=== PATIENT | male | born 1990 | race Caucasian/White ===

== ENCOUNTER 2020-12-06 10:45 | Outpatient (CLI) | payer BC | END 2020-12-06 10:46 | disposition home or self-care (01) | LOC: CTENTCT 10:45 | PROVIDERS: ATTEND Student in an Organized Health Care Education/Training Program | DX: J32.9 Chronic sinusitis, unspecified (principal); J33.9 Nasal polyp, unspecified | CPT/HCPCS: 70486 ==

== ENCOUNTER 2021-01-06 15:02 | Outpatient (CLI) | payer BC ==
[2021-01-07 16:59] LABS: SARS-CoV-2 PCR by NAA Not Detected (NotDetected)
== END 2021-01-06 15:03 | disposition home or self-care (01) ==
LOC: LABBT 15:02
PROVIDERS: ATTEND Specialist
DX: Z01.812 Encounter for preprocedural laboratory examination (principal); J32.4 Chronic pansinusitis; J34.3 Hypertrophy of nasal turbinates; J33.9 Nasal polyp, unspecified; J34.89 Other specified disorders of nose and nasal sinuses; J30.9 Allergic rhinitis, unspecified; Z20.822 Contact with and (suspected) exposure to COVID-19
CPT/HCPCS: U0003; U0005

== ENCOUNTER 2021-01-09 07:21 | Day surgery (SDC) | payer BC ==
[2021-01-09] MEDS ORDERED: AFRIN NASAL MIST 15 ML BOT ONE ×2 (08:55→09:20)
[2021-01-09] MEDS ORDERED: Lidocaine 1% w/Epinephrine 1:100K 20 ML VIAL ONE (09:20)
[2021-01-09] MEDS ORDERED: Bacitracin Zinc Ointment 30 gm TUBE ONE (09:20)
[2021-01-09] MEDS ORDERED: Midazolam HCl 2 mg/2 ml Vial ONE (09:21)
[2021-01-09] MEDS ORDERED: SUGAMMADEX SODIUM 200 MG/2 ML VIAL ONE (09:30)
[2021-01-09] MEDS ORDERED: Famotidine/PF 20 mg/2ml Vial ONE (09:30)
[2021-01-09] MEDS ORDERED: Fentanyl 100 MCG/2 ML VIAL ONE ×2 (09:30→11:22)
[2021-01-09] MEDS ORDERED: Rocuronium Bromide 10 MG/ML (10ML VIAL) ONE (09:53)
[2021-01-09] MEDS ORDERED: PROPOFOL 200 MG/20 ML VIAL ONE (09:53)
[2021-01-09] MEDS ORDERED: Lidocaine 1% PF 5 ML VIAL ONE (09:53)
[2021-01-09] MEDS ORDERED: Dexamethasone 20 MG/5 ML VIAL ONE (09:53)
[2021-01-09] MEDS ORDERED: Ondansetron PF 4 MG/2 ML Vial ONE (09:53)
[2021-01-09] MEDS ORDERED: Triamcinolone 40 MG/ML VIAL ONE (10:16)
== END 2021-01-09 13:50 | disposition home or self-care (01) ==
LOC: SDC 07:21
PROVIDERS: ATTEND Specialist
PROC: 09BV8ZZ Excision of Left Ethmoid Sinus, Via Natural or Artificial Opening Endoscopic (ICD-10-PCS; principal; 2021-01-09)
PROC: 09BL8ZZ Excision of Nasal Turbinate, Via Natural or Artificial Opening Endoscopic (ICD-10-PCS; principal; 2021-01-09)
PROC: 8E09XBZ Computer Assisted Procedure of Head and Neck Region (ICD-10-PCS; principal; 2021-01-09)
PROC: 09BS8ZZ Excision of Right Frontal Sinus, Via Natural or Artificial Opening Endoscopic (ICD-10-PCS; principal; 2021-01-09)
PROC: 09BT8ZZ Excision of Left Frontal Sinus, Via Natural or Artificial Opening Endoscopic (ICD-10-PCS; principal; 2021-01-09)
PROC: 09BU8ZZ Excision of Right Ethmoid Sinus, Via Natural or Artificial Opening Endoscopic (ICD-10-PCS; principal; 2021-01-09)
PROC: 099Q8ZZ Drainage of Right Maxillary Sinus, Via Natural or Artificial Opening Endoscopic (ICD-10-PCS; principal; 2021-01-09)
PROC: 099X8ZZ Drainage of Left Sphenoid Sinus, Via Natural or Artificial Opening Endoscopic (ICD-10-PCS; principal; 2021-01-09)
PROC: 099R8ZZ Drainage of Left Maxillary Sinus, Via Natural or Artificial Opening Endoscopic (ICD-10-PCS; principal; 2021-01-09)
PROC: 099W8ZZ Drainage of Right Sphenoid Sinus, Via Natural or Artificial Opening Endoscopic (ICD-10-PCS; principal; 2021-01-09)
DX: J32.4 Chronic pansinusitis (principal); J34.3 Hypertrophy of nasal turbinates; J33.0 Polyp of nasal cavity; J30.9 Allergic rhinitis, unspecified; J34.89 Other specified disorders of nose and nasal sinuses
CPT/HCPCS: 87070; 87205; J1100; J2250; J2405; J2704; J3010; J3301; S0028